=== PATIENT | female | born 1955 | race African-American/Black ===

== ENCOUNTER 2017-02-20 16:48 | Emergency (ER) | payer OTHER ==
[~2017-02-20] VITALS: Ht 167.6 cm; Wt 97.0 kg
[~2017-02-20 16:48] MED LIST: LYRI50CA PO
[2017-02-20] MEDS ORDERED: SODIUM CHLOR 0.9% 1000 ML INJ 1,000 ML IV ONE (17:47)
--- NOTE | 2017-02-20 17:54 | PD ---
HPI Chief Complaint: Injury Time Seen by Provider: 17:54 Travel History International Travel<30 days: No Contact w/Intl Traveler<30days: No Traveled to known affect area: No History of Present Illness HPI 61-year-old female presents to the emergency department for evaluation of left first, second, third digit pain that radiates up the arm. Patient states that she will have some tingling as well. She reports a history of carpal tunnel surgery. She states these symptoms are similar prior to her previous surgery. Patient also reports intermittent headaches for the past couple of weeks. She states the headaches, and go. She currently has a headache that she rates 8/ 10. Patient states the headache started gradually. No chest pain or shortness breath. No abdominal pain. No nausea, vomiting, diarrhea. Patient denies any weakness or syncope. No slurred speech. She has no other complaints. PFSH Past Medical History Arthritis: Yes Migraines: Yes Menopausal: Yes Past Surgical History Cholecystectomy: Yes Social History Alcohol Use: Yes (occ) Tobacco Use: No Substance Use: No Allergies-Medications (Allergen,Severity, Reaction): Coded Allergies: Dilaudid (Verified Allergy, Severe, Nausea/Vomiting, 02/20/17) Morphine (Verified Allergy, Severe, Nausea/Vomiting, 02/20/17) Tramadol (Verified Adverse Reaction, Mild, dizziness, nausea, 02/20/17) Reported Meds & Prescriptions Reported Meds & Active Scripts Active Lyrica (Pregabalin) 50 Mg Cap 50 Mg PO HS Review of Systems Except as stated in HPI: all other systems reviewed are Neg Physical Exam Narrative GENERAL: Well-nourished, well-developed female patient, ambulatory. Afebrile. SKIN: Focused skin assessment warm/dry. HEAD: Normocephalic. Atraumatic EYES: No scleral icterus. No injection or drainage. PERRLA. EOM intact. NECK: Supple, trachea midline. No JVD or lymphadenopathy. CARDIOVASCULAR: Regular rate and rhythm without murmurs, gallops, or rubs. RESPIRATORY: Breath sounds equal bilaterally. No accessory muscle use. Lungs sounds are clear to auscultation. GASTROINTESTINAL: Abdomen soft, non-tender, nondistended. MUSCULOSKELETAL: No cyanosis, or edema. Bilateral upper and lower extremity strength 5/5. All extremities are neurovascularly intact. Patient is positive Phalen's test to the left hand BACK: Nontender without obvious deformity. No CVA tenderness. NEUROLOGICAL: Awake and alert. Cranial nerves II through XII intact. Motor and sensory grossly within normal limits. Five out of 5 muscle strength in all muscle groups. Normal speech. Finger to nose is normal bilaterally. Heel-to- hammond is normal bilaterally. Data Data Last Documented VS Vital Signs Date Time Temp Pulse Resp B/P Pulse Ox O2 Delivery O2 Flow Rate FiO2 02/20/17 18:08 73 15 133/62 99 Room Air Orders Electrocardiogram (02/20/17 ) Complete Blood Count With Diff (02/20/17 17:47) Basic Metabolic Panel (Bmp) (02/20/17 17:47) Ct Brain W/O Iv Contrast(Rout) (02/20/17 17:47) Ecg Monitoring (02/20/17 17:47) Iv Access Insert/Monitor (02/20/17 17:47) Oximetry (02/20/17 17:47) Sodium Chloride 0.9% Flush (Ns Flush) (02/20/17 18:00) Prochlorperazine Inj (Compazine Inj) (02/20/17 18:00) Diphenhydramine Inj (Benadryl Inj) (02/20/17 18:00) Sodium Chlor 0.9% 1000 Ml Inj (Ns 1000 M (02/20/17 17:47) Labs Laboratory Tests Test 02/20/17 18:00 White Blood Count 6.4 TH/MM3 Red Blood Count 4.66 MIL/MM3 Hemoglobin 13.0 GM/DL Hematocrit 40.1 % Mean Corpuscular Volume 86.0 FL Mean Corpuscular Hemoglobin 27.9 PG Mean Corpuscular Hemoglobin 32.4 % Concent Red Cell Distribution Width 14.9 % Platelet Count 306 TH/MM3 Mean Platelet Volume 8.2 FL Neutrophils (%) (Auto) 47.9 % Lymphocytes (%) (Auto) 41.6 % Monocytes (%) (Auto) 7.4 % Eosinophils (%) (Auto) 2.3 % Basophils (%) (Auto) 0.8 % Neutrophils # (Auto) 3.1 TH/MM3 Lymphocytes # (Auto) 2.7 TH/MM3 Monocytes # (Auto) 0.5 TH/MM3 Eosinophils # (Auto) 0.1 TH/MM3 Basophils # (Auto) 0.1 TH/MM3 CBC Comment DIFF FINAL Differential Comment Sodium Level 141 MEQ/L Potassium Level 3.9 MEQ/L Chloride Level 109 MEQ/L Carbon Dioxide Level 24.0 MEQ/L Anion Gap 8 MEQ/L Blood Urea Nitrogen 12 MG/DL Creatinine 0.98 MG/DL Estimat Glomerular Filtration 70 ML/MIN Rate Random Glucose 117 MG/DL Calcium Level 8.6 MG/DL MDM Medical Decision Making Medical Screen Exam Complete: Yes Emergency Medical Condition: Yes Medical Record Reviewed: Yes Interpretation(s) CT brain - CONCLUSION: Normal examination. Differential Diagnosis Carpal tunnel syndrome versus migraine headache versus tension headache versus cluster headache versus intracranial abnormality Narrative Course 61-year-old female presents to the emergency department for evaluation of left first, second, third digit pain that radiates up the left arm as well as Atrovent headaches. Patient appears well on exam. Physical is consistent with carpal tunnel syndrome. EKG was sent in triage shows sinus rhythm, heart rate 82, no acute ST changes. CBC, BMP are ordered and pending. Patient is given normal saline 1 L IV bolus, Compazine 10 mg IV, Benadryl 25 mg IV for headache. CT of the brain is ordered and pending. CBC is unremarkable. BMP shows no acute abnormality. CT of the brain is normal. Upon reassessment, patient states headache is resolved. Physical exam and symptoms are consistent with carpal tunnel syndrome, chronic headache. Patient is instructed to follow up with her primary care physician. She verbalizes agreement and understanding. Diagnosis Primary Impression: Carpal tunnel syndrome Qualified Code: G56.02 - Carpal tunnel syndrome of left wrist Additional Impression: Headache Qualified Code: R51 - Chronic nonintractable headache, unspecified headache type Referrals: Primary Care Physician call for appointment Patient Instructions: Carpal Tunnel Syndrome (ED), General Instructions, Tension Headache (ED) Additional Instructions: Follow-up with your primary care physician. Return to the emergency department for any acute worsening of symptoms. Med/Other Pt SpecificInfo: No Change to Meds Disposition: 01 DISCHARGE HOME Condition: Stable Basia Chandler RADHA Feb 20, 2017 17:54
[2017-02-20] MEDS ORDERED: PROCHLORPERAZINE INJ 10 MG/2 ML VIAL IVP ONE (18:00)
[2017-02-20] MEDS ORDERED: SODIUM CHLORIDE 0.9% FLUSH 10 ML FLUSH IVF PRN (18:00)
[2017-02-20] MEDS ORDERED: diphenhydrAMINE HCL 50 MG/ML VIAL IVP ONE (18:00)
[2017-02-20 18:08] VITALS: BP 133/62; PULSE 73; RESP 15; O2SAT 99
--- NOTE | 2017-02-20 18:30 | RADRPT ---
EXAM DATE/TIME: 02/20/2017 18:23 [facility] COMPARISON: No previous studies available for comparison. INDICATIONS : Left arm numbness and headache. RADIATION DOSE: 35.10 CTDIvol (mGy) MEDICAL HISTORY : Non-responsive. SURGICAL HISTORY : Cholecystectomy. ENCOUNTER: Initial ACUITY: 1 day PAIN SCALE: 6/10 LOCATION: cranial TECHNIQUE: Multiple contiguous axial images were obtained of the head. Using automated exposure control and adj ustment of the mA and/or kV according to patient size, radiation dose was kept as low as reasonably a chievable to obtain optimal diagnostic quality images. DICOM format image data is available electro nically for review and comparison. FINDINGS: CEREBRUM: The ventricles are normal for age. No evidence of midline shift, mass lesion, hemorrhage or acute in farction. No extra-axial fluid collections are seen. POSTERIOR FOSSA: The cerebellum and brainstem are intact. The 4th ventricle is midline. The cerebellopontine angle i s unremarkable. EXTRACRANIAL: The visualized portion of the orbits is intact. SKULL: The calvaria is intact. No evidence of skull fracture. CONCLUSION: Normal examination. Hussein Atkins MD on February 20, 2017 at 18:28 Board Certified Radiologist. This report was verified electronically.
[2017-02-20 18:32] LABS: AUTOMATED NEUTROPHIL # 3.1 TH/MM3 (1.8-7.7); BASOPHIL # 0.1 TH/MM3 (0-0.2); BASOPHIL % 0.8 % (0.0-2.0); EOSINOPHIL # 0.1 TH/MM3 (0-0.4); EOSINOPHIL % 2.3 % (0.0-4.0); HEMATOCRIT 40.1 % (35.0-46.0); HEMO FLAGS DIFF FINAL; LYMPH % 41.6 % (9.0-44.0); LYMPHOCYTE # 2.7 TH/MM3 (1.0-4.8); MEAN CORPUSCULAR HEMOGLOBIN 27.9 PG (27.0-34.0); MEAN CORPUSCULAR HGB CONC 32.4 % (32.0-36.0); MONO % 7.4 % (0.0-8.0); NEUT % 47.9 % (16.0-70.0); PLATELET COUNT 306 TH/MM3 (150-450); RED BLOOD COUNT 4.66 MIL/MM3 (4.00-5.30); RED CELL DISTRIBUTION WIDTH 14.9 % (11.6-17.2); WHITE BLOOD COUNT 6.4 TH/MM3 (4.0-11.0)
[2017-02-20 19:03] LABS: POTASSIUM 3.9 MEQ/L (3.5-5.1)
[2017-02-20 19:15] VITALS: BP 129/76; PULSE 72; RESP 16; TEMP 98.6; O2SAT 96
--- NOTE | 2017-02-21 12:24 | EKG ---
Date Performed: 02/20/2017 Time Performed: 17:08:53 PTAGE: 61 years EKG: Sinus rhythm WITH OCCASIONAL SUPRAVENTRICULAR PREMATURE COMPLEXES NONSPECIFIC T-WAVE ABNORMALITY BORDERLINE ECG NO PREVIOUS TRACING DOCTOR: Mervin Wheat Interpretating Date/Time 02/21/2017 12:20:11
== END 2017-02-20 19:38 | disposition home or self-care (01) ==
LOC: NEPC 16:48
DX: G56.02 Carpal tunnel syndrome, left upper limb (principal); R51 Headache; R94.31 Abnormal electrocardiogram [ECG] [EKG]; Z87.39 Personal history of other diseases of the musculoskeletal system and connective tissue; Z86.69 Personal history of other diseases of the nervous system and sense organs
CPT/HCPCS: 70450; 80048; 85025; 93005; 96374; 96375; 99285; J0780; J1200; J7030